=== PATIENT | female | born 1935 | race Caucasian/White ===

== ENCOUNTER → 2016-04-20 | Outpatient (CLI) | payer MEDICARE, OTHER ==
[~2016-04-20] MED LIST: ADVIL DPS200 MG PO; ARIMIDEX DPS1 MG PO; CALCIUM + VIT D PO; HYDROCHLOROTHIA25 MG PO; MICRO-K DPS8 MEQ PO; NORVASC5 MG PO; OYSTER SHELL C500 MG PO; PROTONIX40 MG PO; TOPROL XL50 MG PO; ULTRAM DPS50 MG PO; ZOFRAN4 MG PO
== END | disposition home or self-care (01) ==
LOC: RAD.S 12:56
DX: N63 Unspecified lump in breast (principal); N64.4 Mastodynia; C34.90 Malignant neoplasm of unspecified part of unspecified bronchus or lung; Z98.890 Other specified postprocedural states; Z85.3 Personal history of malignant neoplasm of breast

== ENCOUNTER → 2016-08-01 | Outpatient (CLI) | payer MEDICARE, OTHER | END | disposition home or self-care (01) | LOC: RAD.S 08:08 | DX: K21.9 Gastro-esophageal reflux disease without esophagitis (principal); K44.9 Diaphragmatic hernia without obstruction or gangrene ==